=== PATIENT | male | born 1945 ===

== ENCOUNTER 2017-05-26 11:51 | Inpatient (IN) | payer OTHER ==
[~2017-05-26] VITALS: Ht 172.7 cm; Wt 81.6 kg
[2017-05-26] MEDS ORDERED: JANUMET XR 50-1 EAC1 PO (13:05)
[2017-05-26] MEDS ORDERED: GLIPIZIDE10 MG PO (13:05)
[2017-05-26] MEDS ORDERED: LOTREL 10-40 M1 EACH PO (13:05)
[2017-05-26] MEDS ORDERED: SIMVASTATIN10 MG PO (13:06)
[2017-05-26] MEDS ORDERED: LANTUS SOL100 UNIT/1 (13:06)
[2017-05-26] MEDS ORDERED: FENOFIBRATE50 MG PO (13:06)
[2017-05-26] MEDS ORDERED: CATAFLAN PO (13:07)
[2017-05-26] MEDS ORDERED: PRILOSEC OTC20 MG PO (13:08)
[2017-06-05] MEDS ORDERED: GABAPENTIN800 MG PO (09:24)
[2017-06-05] MEDS ORDERED: DOCUSATE SODIU100 MG PO (09:24)
[2017-06-05] MEDS ORDERED: AMOX-CLAV 875-1 EACH PO (09:25)
[2017-06-05] MEDS ORDERED: CLONAZEPAM1 MG PO (09:26)
[2017-06-05] MEDS ORDERED: PERCOCET 5-3251 EACH PO (09:26)
== END 2017-06-05 14:05 | disposition home or self-care (01) | DRG 460 ==
LOC: O/R 06-04 03:55 → SURH 06-04 07:00 → PED 06-04 10:24 → SURH 06-04 12:30 → PED 06-05 14:05
PROVIDERS: Orthopaedic Surgery Orthopaedic Surgery of the Spine
PROC: 0SG00AJ Fusion of Lumbar Vertebral Joint with Interbody Fusion Device, Posterior Approach, Anterior Column, Open Approach (ICD-10-PCS; 2017-06-04)
PROC: 0ST20ZZ Resection of Lumbar Vertebral Disc, Open Approach (ICD-10-PCS; 2017-06-04)
PROC: 07DS3ZZ Extraction of Vertebral Bone Marrow, Percutaneous Approach (ICD-10-PCS; 2017-06-04)
PROC: 0SG00A0 Fusion of Lumbar Vertebral Joint with Interbody Fusion Device, Anterior Approach, Anterior Column, Open Approach (ICD-10-PCS; principal; 2017-06-04 07:00)
DX: M47.26 Other spondylosis with radiculopathy, lumbar region (principal); M51.16 Intervertebral disc disorders with radiculopathy, lumbar region; M48.061 Spinal stenosis, lumbar region without neurogenic claudication; I10 Essential (primary) hypertension; E11.9 Type 2 diabetes mellitus without complications